=== PATIENT | female | born 1950 | race Caucasian/White ===

== ENCOUNTER 2017-07-29 15:09 | Emergency (ER) | payer OTHER ==
[2017-07-29] MEDS: traMADol 50 MG TAB PO (16:09)
[2017-07-29] MEDS: ACETAMINOPHEN 325 MG TAB PO (16:10)
== END 2017-07-29 17:27 | disposition home or self-care (01) ==
LOC: FTE 15:09
DX: S60.211A Contusion of right wrist, initial encounter (principal); W18.40XA Slipping, tripping and stumbling without falling, unspecified, initial encounter; Y92.9 Unspecified place or not applicable
CPT/HCPCS: 29125; 73080-RT; 73110-RT; 73130-RT; 99283-25